=== PATIENT | male | born 1985 | race Caucasian/White ===

== ENCOUNTER 2018-11-16 20:19 | Emergency (ER) | payer MEDICAID ==
[~2018-11-16] VITALS: Ht 170.2 cm; Wt 88.2 kg
[2018-11-16] MEDS ORDERED: MIRT15 PO (21:16)
[2018-11-16 22:13] VITALS: BP 141/79
== END 2018-11-16 22:32 | disposition home or self-care (01) ==
LOC: EMS 20:19
DX: T80.90XA Unspecified complication following infusion and therapeutic injection, initial encounter (principal); R03.0 Elevated blood-pressure reading, without diagnosis of hypertension; M79.602 Pain in left arm; F41.9 Anxiety disorder, unspecified; F32.9 Major depressive disorder, single episode, unspecified; F17.210 Nicotine dependence, cigarettes, uncomplicated; Y92.89 Other specified places as the place of occurrence of the external cause